=== PATIENT | male | born 1975 | race African-American/Black ===

== ENCOUNTER 2021-01-24 07:55 | Emergency (ER) | payer OTHER ==
[~2021-01-24] VITALS: Ht 167.6 cm; Wt 80.0 kg
[2021-01-24 08:13] VITALS: BP 148/89
[2021-01-24] MEDS ORDERED: IBUPROFEN 600MG TABLET PO ONE (08:45)
== END 2021-01-24 09:25 | disposition left against medical advice (07) ==
LOC: ER 08:08
DX: J02.9 Acute pharyngitis, unspecified (principal); Z53.21 Procedure and treatment not carried out due to patient leaving prior to being seen by health care provider